=== PATIENT | male | born 1950 | race Hispanic/Latino ===

== ENCOUNTER 2023-09-08 11:02 | Outpatient (CLI) | payer MEDICARE | END 2023-09-08 11:03 | disposition home or self-care (01) | LOC: SCSRAD 11:02 | PROVIDERS: ATTEND Nurse Practitioner Family | DX: R07.89 Other chest pain (principal) | CPT/HCPCS: 71046 ==

== ENCOUNTER 2024-03-06 14:37 | Outpatient (CLI) | payer MEDICARE ==
[2024-03-06 16:05] LABS: #Basophils 0.07 10x3/uL (0.0-0.2); #Eosinphils 0.26 10x3/uL (0.0-0.5); #Neutrophils 5.72 10x3/uL (1.5-8.4); %Basophils 0.9 % (0.0-2.0); %Eosinophils 3.3 % (0.0-6.0); %Lymphocytes 10.3 % (18.0-47.0); %Monocytes 11.6 % (0.0-10.0); %Neutrophils 73.4 % (40.0-75.0); Hematocrit 35.6 % (38.8-50.0); Hemoglobin 11.4 g/dL (13.5-17.5); Mean Corpuscular Hemoglobin 24.9 pg (27.0-33.0); Mean Corpuscular Volume 77.9 fl (81.2-95.1); Mean Platelet Volume 12.7 fl (7.4-10.4); Platelet Count 236 10x3/uL (150-450); RBC Distribution Width 15.6 % (11.5-14.5); Red Blood Cell (RBC) Count 4.57 10x6/uL (4.32-5.72); White Blood Cell (WBC) Count 7.8 10x3/uL (3.5-10.5)
[2024-03-06 16:21] LABS: Anion Gap 13 mmol/L (10-20); BUN (Urea Nitrogen) 16 mg/dL (8.4-25.7); Calc. Creatinine Clearance 0 mL/min (70-130); Calcium 9.2 mg/dL (7.8-10.44); Carbon Dioxide 23 mmol/L (23-31); Chloride 107 mmol/L (98-107); Estimated GFR 97; Glucose 69 mg/dL (83-110); Potassium 4.9 mmol/L (3.5-5.1); Sodium 138 mmol/L (136-145)
== END 2024-03-06 14:38 | disposition home or self-care (01) ==
LOC: LABBT 14:37
PROVIDERS: ATTEND Surgery
DX: Z01.818 Encounter for other preprocedural examination (principal); R19.00 Intra-abdominal and pelvic swelling, mass and lump, unspecified site
CPT/HCPCS: 80048; 85025; 93005; 93010

== ENCOUNTER 2024-03-06 15:30 | Inpatient (IN) | payer MEDICARE ==
[2024-03-06 15:52] VITALS: BMI 29.2
[2024-03-13] MEDS ORDERED: fentaNYL 50 mcg/mL 1 mL Vial ONE ×4 (09:33→14:29)
[2024-03-13] MEDS ORDERED: Bupivacaine 0.25% HCL 30 ML VIAL ONE (09:34)
[2024-03-13] MEDS ORDERED: Midazolam HCl 2 mg/2 ml Vial ONE (09:34)
[2024-03-13] MEDS ORDERED: Bupivacaine/Epinephrine 0.25% 30 ML VIAL ONE (09:50)
[2024-03-13] MEDS ORDERED: Dexamethasone 20 MG/5 ML VIAL ONE (12:04)
[2024-03-13] MEDS ORDERED: fentaNYL PF 100 MCG/2 ML SYRINGE ONE (12:04)
[2024-03-13] MEDS ORDERED: Rocuronium Bromide 10 MG/ML (10ML VIAL) ONE (12:04)
[2024-03-13] MEDS ORDERED: PROPOFOL 20 ML ONE (12:04)
[2024-03-13] MEDS ORDERED: Lidocaine 1% PF 5 ML VIAL ONE (12:04)
[2024-03-13] MEDS ORDERED: Ondansetron PF 4 MG/2 ML Vial ONE (12:04)
[2024-03-13] MEDS ORDERED: Sodium Chloride 0.9% 100 ML ONE (12:08)
[2024-03-13] MEDS ORDERED: cefOXitin 2 GM VIAL ONE (12:08)
[2024-03-13] MEDS ORDERED: PHENYLEPHRINE-NS 100 MCG/ML 10 ML SYRINGE ONE (12:29)
[2024-03-13] MEDS ORDERED: SUGAMMADEX SODIUM 200 MG/2 ML VIAL ONE (12:38)
[2024-03-13] MEDS ORDERED: ePHEDrine Sulfate 50 MG/10 ML VIAL ONE (12:59)
[2024-03-13] MEDS ORDERED: Morphine 4 MG/ML VIAL ONE (14:40)
[2024-03-13] MEDS ORDERED: Morphine 2 MG/ML VIAL ONE ×2 (14:59→15:29)
[2024-03-13] MEDS ORDERED: HYDROcodone/Acetaminophen 5/325 mg Tablet ONE (16:08)
== END 2024-03-13 17:23 | disposition home or self-care (01) | DRG 358 ==
LOC: SURG A 03-13 07:28 → EDSTATUS 03-13 15:30
PROVIDERS: ADMIT Surgery; ATTEND Surgery
PROC: 0WBH0ZX Excision of Retroperitoneum, Open Approach, Diagnostic (ICD-10-PCS; principal; 2024-03-13)
PROC: 0WJG0ZZ Inspection of Peritoneal Cavity, Open Approach (ICD-10-PCS; 2024-03-13)
PROC: 3E033XZ Introduction of Vasopressor into Peripheral Vein, Percutaneous Approach (ICD-10-PCS; 2024-03-13)
DX: R19.09 Other intra-abdominal and pelvic swelling, mass and lump (principal); R19.05 Periumbilic swelling, mass or lump; I10 Essential (primary) hypertension; M19.90 Unspecified osteoarthritis, unspecified site; E78.5 Hyperlipidemia, unspecified; E11.9 Type 2 diabetes mellitus without complications; Z96.651 Presence of right artificial knee joint
CPT/HCPCS: 36416; 88184; 88185; 88189; 88304; 88305; 88331; 88341; 88342; 88360; A4314; C1713; C1776; J0665; J0694; J1100; J2250; J2270; J2272; J2405; J2704; J3010; J3490

== ENCOUNTER 2024-03-07 09:30 | Outpatient (CLI) | payer MEDICARE | END 2024-03-07 09:31 | LOC: PET 09:30 | PROVIDERS: ATTEND Internal Medicine Hematology & Oncology | DX: R59.0 Localized enlarged lymph nodes (principal); R93.5 Abnormal findings on diagnostic imaging of other abdominal regions, including retroperitoneum; R19.07 Generalized intra-abdominal and pelvic swelling, mass and lump | CPT/HCPCS: 78815; A9552 ==

== ENCOUNTER 2024-04-08 09:27 | Day surgery (SDC) | payer MEDICARE ==
[2024-04-05 11:13] VITALS: BMI 29.0
[2024-04-08] MEDS ORDERED: PROPOFOL 20 ML ONE ×2 (11:01→12:22)
[2024-04-08] MEDS ORDERED: Lidocaine 2% PF 5 ML VIAL ONE (11:01)
[2024-04-08] MEDS ORDERED: EPINEPHrine 1 MG/ML VIAL ONE (11:56)
[2024-04-08] MEDS ORDERED: Bupivacaine 0.25% HCL 30 ML VIAL ONE (11:56)
[2024-04-08] MEDS ORDERED: Sodium Chloride 0.9% 100 ML ONE (12:02)
[2024-04-08] MEDS ORDERED: CEFAZOLIN 2 GM VIAL ONE (12:02)
[2024-04-08] MEDS ORDERED: fentaNYL PF 100 MCG/2 ML SYRINGE ONE (12:13)
[2024-04-08] MEDS ORDERED: Ondansetron PF 4 MG/2 ML Vial ONE (12:22)
[2024-04-08] MEDS ORDERED: ePHEDrine Sulfate 50 MG/10 ML VIAL ONE (12:26)
== END 2024-04-08 13:59 | disposition home or self-care (01) ==
LOC: SDC 09:27
PROVIDERS: ATTEND Surgery
PROC: 0JH63XZ Insertion of Tunneled Vascular Access Device into Chest Subcutaneous Tissue and Fascia, Percutaneous Approach (ICD-10-PCS; principal; 2024-04-08)
DX: C85.98 Non-Hodgkin lymphoma, unspecified, lymph nodes of multiple sites (principal); E11.9 Type 2 diabetes mellitus without complications; I10 Essential (primary) hypertension; E78.5 Hyperlipidemia, unspecified; Z79.84 Long term (current) use of oral hypoglycemic drugs; Z79.899 Other long term (current) drug therapy
CPT/HCPCS: 36561; 71045; C1788; J0171; J0665; J1642; J2001; J2405; J2704; J3490

== ENCOUNTER → 2024-04-22 | Day surgery (SDC) | payer MEDICARE ==
[~2024-04-22] MED LIST: Lidocaine 1% PF 5 ML VIAL ONE; Sodium Bicarbonate 2.5 MEQ/5 ML SDV ONE; fentaNYL 50 mcg/mL 1 mL Vial ONE
[2024-04-22 08:28] LABS: Hematocrit 35.7 % (42.0-52.0); Hemoglobin 11.6 g/dL (14.0-18.0); Mean Corpuscular HGB CONC 32.5 g/dL (32.0-36.0); Mean Corpuscular Hemoglobin 25.4 pg (27.0-31.0); Mean Corpuscular Volume 78.1 fL (78.0-98.0); Mean Platelet Volume 11.2 fL (7.4-10.4); Platelet Count 148 10x3/uL (130-400); RBC Distribution Width 18.1 % (11.5-14.5); Red Blood Cell (RBC) Count 4.57 mill/uL (4.70-6.10)
[2024-04-22 08:33] LABS: PTT 23.5 sec (22.9-36.1); Prothrombin Time 13.2 sec (12.0-14.7)
[2024-04-22 09:46] LABS: Band 6 % (5-11); Burr Cells SLIGHT = 2-5 cells HPF (0-1); Dohle Bodies SLIGHT; Lymphocytes 1 % (21-51); Neutrophil 93 % (42-75); Platelet Adequacy Comment Platelets Normal; Schistocytes SLIGHT = 2-5 cells HPF (0-1)
[2024-04-22 12:05] LABS: ALT (SGPT) 14 U/L (8-55); AST (SGOT) 9 U/L (5-34); Albumin 3.2 g/dL (3.4-4.8); Alkaline Phosphatase 85 U/L (40-110); Anion Gap 11 mmol/L (10-20); BUN (Urea Nitrogen) 15 mg/dL (8.4-25.7); Bilirubin, Total 0.5 mg/dL (0.2-1.2); Calc. Creatinine Clearance 0 mL/min (70-130); Calcium 8.4 mg/dL (7.8-10.44); Carbon Dioxide 24 mmol/L (23-31); Chloride 105 mmol/L (98-107); Estimated GFR 107; Glucose 108 mg/dL (83-110); Potassium 3.7 mmol/L (3.5-5.1); Protein, Total 5.2 g/dL (5.8-8.1); Sodium 136 mmol/L (136-145); Uric Acid 4.4 mg/dL (3.5-7.2)
== END ==
LOC: CT 08:00
PROVIDERS: ATTEND Internal Medicine Hematology & Oncology
PROC: 07DR0ZX Extraction of Iliac Bone Marrow, Open Approach, Diagnostic (ICD-10-PCS; principal; 2024-04-22)
DX: C83.33 Diffuse large B-cell lymphoma, intra-abdominal lymph nodes (principal)
CPT/HCPCS: 20225; 77012; 80053; 83615; 84550; 85025; 85097; 85610; 85730; J1642; J3010; 36415; 88184; 88185; 88189; 88237; 88264; 88280; 88305; 88311; 88341; 88342

== ENCOUNTER 2024-08-19 13:15 | Outpatient (CLI) | payer MEDICARE | END 2024-08-19 13:16 | disposition home or self-care (01) | LOC: PET 13:15 | PROVIDERS: ATTEND Internal Medicine Hematology & Oncology | DX: C83.33 Diffuse large B-cell lymphoma, intra-abdominal lymph nodes (principal) | CPT/HCPCS: 78815; A9552 ==

== ENCOUNTER 2024-09-13 11:16 | Outpatient (CLI) | payer MEDICARE | END 2024-09-13 11:17 | disposition home or self-care (01) | LOC: SCSRAD 11:16 | DX: R06.00 Dyspnea, unspecified (principal) | CPT/HCPCS: 71046 ==